=== PATIENT | female | born 1955 | race Caucasian/White ===

== ENCOUNTER 2023-02-16 13:42 | Outpatient (CLI) | payer OTHER | END 2023-02-16 13:43 | disposition home or self-care (01) | LOC: CT 13:42 | PROVIDERS: ATTEND Nurse Practitioner Family | DX: Z12.2 Encounter for screening for malignant neoplasm of respiratory organs (principal); R91.1 Solitary pulmonary nodule; Z87.891 Personal history of nicotine dependence; S22.20XG Unspecified fracture of sternum, subsequent encounter for fracture with delayed healing | CPT/HCPCS: 71271 ==

== ENCOUNTER 2024-11-18 08:45 | Outpatient (CLI) | payer OTHER | END 2024-11-18 08:46 | disposition home or self-care (01) | LOC: PET 08:45 | PROVIDERS: ATTEND Internal Medicine Hematology & Oncology | DX: C50.412 Malignant neoplasm of upper-outer quadrant of left female breast (principal); R91.1 Solitary pulmonary nodule | CPT/HCPCS: 78815; A9552 ==

== ENCOUNTER 2025-02-11 09:30 | Outpatient (CLI) | payer OTHER | END 2025-02-11 09:31 | disposition home or self-care (01) | LOC: PET 09:30 | PROVIDERS: ATTEND Internal Medicine Hematology & Oncology | DX: C50.412 Malignant neoplasm of upper-outer quadrant of left female breast (principal) | CPT/HCPCS: 78815; A9552 ==